=== PATIENT | male | born 1975 | race African-American/Black ===

== ENCOUNTER 2022-06-07 21:16 | Emergency (ER) | payer MEDICAID ==
[~2022-06-07] VITALS: Ht 185.4 cm; Wt 82.0 kg
[2022-06-07 21:25] VITALS: BP 110/87
[2022-06-07] MEDS ORDERED: ONDANSETRON HCL 4MG TABLET PO ONE (23:15)
[2022-06-07] MEDS ORDERED: ONDA4TAB50 MT (23:33)
== END 2022-06-08 00:07 | disposition home or self-care (01) ==
LOC: ER 21:16
DX: F41.9 Anxiety disorder, unspecified (principal); R11.0 Nausea
CPT/HCPCS: 99283; Q0162

== ENCOUNTER 2022-06-08 00:46 | Emergency (ER) | payer MEDICAID ==
[~2022-06-08] VITALS: Ht 188 cm; Wt 79.5 kg
[~2022-06-08 00:46] MED LIST: ONDA4TAB50 MT
[2022-06-08 00:55] VITALS: BP 140/88
== END 2022-06-08 05:11 | disposition left against medical advice (07) ==
LOC: ER 00:46
DX: Z53.21 Procedure and treatment not carried out due to patient leaving prior to being seen by health care provider (principal)
CPT/HCPCS: 99281

== ENCOUNTER 2022-06-27 23:00 | Emergency (ER) | payer MEDICAID ==
[~2022-06-27] VITALS: Ht 188 cm; Wt 82.0 kg
[2022-06-28] MEDS ORDERED: CYCLOBENZAPRINE 10MG TABLET PO ONE (00:30)
[2022-06-28] MEDS ORDERED: KETOROLAC 15MG/ML VIAL IM ONE (00:30)
[2022-06-28 00:50] VITALS: BP 126/86
[2022-06-28] MEDS ORDERED: CYCL10TA21 MT (01:20)
[2022-06-28] MEDS ORDERED: NAPR500T7 MT (01:20)
== END 2022-06-28 01:40 | disposition home or self-care (01) ==
LOC: ER 23:17
DX: M54.50 Low back pain, unspecified (principal); F41.9 Anxiety disorder, unspecified; F32.9 Major depressive disorder, single episode, unspecified
CPT/HCPCS: 96372; 99283; J1885; Z7610

== ENCOUNTER 2022-09-27 01:16 | Emergency (ER) | payer MEDICAID ==
[~2022-09-27] VITALS: Ht 188 cm; Wt 78.0 kg
[~2022-09-27 01:16] MED LIST changes: +CYCL10TA21 MT; +NAPR500T7 MT
[2022-09-27 01:47] VITALS: O2SAT 98
[2022-09-27] MEDS ORDERED: LIDO700A15 TP (04:42)
[2022-09-27] MEDS ORDERED: NAPR-679 MT (04:42)
[2022-09-27] MEDS ORDERED: KETOROLAC 30MG/ML VIAL IM ONE (04:45)
[2022-09-27 04:50] VITALS: BP 162/63
[2022-09-27 04:51] VITALS: PULSE 111; RESP 12; TEMP 98
== END 2022-09-27 04:53 | disposition home or self-care (01) ==
LOC: ER 01:19
DX: M54.50 Low back pain, unspecified (principal); G89.29 Other chronic pain; F41.9 Anxiety disorder, unspecified; F32.9 Major depressive disorder, single episode, unspecified
CPT/HCPCS: 99283; 96372; J1885

== ENCOUNTER 2023-10-22 07:25 | Emergency (ER) | payer MEDICAID ==
[~2023-10-22] VITALS: Ht 188 cm; Wt 73.0 kg
[~2023-10-22 07:25] MED LIST changes: +IBUP-2029 MT; +LIDO700A15 TP; +NAPR-679 MT
[2023-10-22 07:26] VITALS: O2SAT 97
[2023-10-22 08:19] LABS: BASOPHILS % 0.6 % (0.0-2.0); DIFFERENTIAL COMMENT 0; EOSINOPHILS % 0.1 % (0.0-5.0); HEMATOCRIT. 38.6 % (42.0-52.0); HEMOGLOBIN. 12.3 g/dL (14.0-18.0); LYMPHOCYTES % 16.8 % (20.0-50.0); MEAN CORPUSCULAR HEMOGLOBIN 25.3 pg (28.0-32.0); MEAN CORPUSCULAR HGB CONC 31.9 g/dL (31.0-37.0); MEAN CORPUSCULAR VOLUME 79.2 fL (80.0-94.0); MEAN PLATELET VOLUME 8.2 fl (7.4-10.4); MONOCYTES % 5.6 % (2.0-8.0); NEUTROPHILS % 76.9 % (40.0-76.0); PLATELET 295 x1000/uL (130-400); RED BLOOD CELL COUNT 4.88 mill/uL (4.7-6.1); RED CELL DISTRIBUTION WIDTH 17.9 % (11.6-14.6); WHITE BLOOD COUNT 6.5 x1000/uL (4.5-11.0)
[2023-10-22 08:27] LABS: CHLORIDE 106 mEq/L (98-107); POTASSIUM 4.2 mEq/L (3.5-5.1); SODIUM 138 mEq/L (136-145)
[2023-10-22 08:28] LABS: CALCIUM 9.8 mg/dL (8.7-10.4); CARBON DIOXIDE 23 mEq/L (21-32)
[2023-10-22 08:33] LABS: CREATININE 1.3 mg/dL (0.6-1.3); GLUCOSE 95 mg/dL (70-105); UREA NITROGEN BLOOD 23 mg/dL (9-23)
[2023-10-22 08:36] LABS: ACETAMINOPHEN < 2 ug/mL (10-30)
[2023-10-22 08:39] LABS: ETHANOL BLOOD < 10 mg/dL (<10)
[2023-10-22] MEDS: OLANZAPINE 5MG TABLET ODT PO SCH (20:49)
[2023-10-22 22:00] VITALS: TEMP 98.1
[2023-10-23 11:00] VITALS: BP 122/73; PULSE 77; RESP 16
== END 2023-10-23 14:03 | disposition home or self-care (01) ==
LOC: ER 07:42
DX: R45.851 Suicidal ideations (principal); F41.9 Anxiety disorder, unspecified; F32.9 Major depressive disorder, single episode, unspecified; Z79.899 Other long term (current) drug therapy; Z20.822 Contact with and (suspected) exposure to COVID-19
CPT/HCPCS: 80048; 80307; 80329; 80320; 85025; 36415; 99285; 87426; Z7610 ×4; G0480